=== PATIENT | female | born 1945 | race American Indian/Alaskan Native ===

== ENCOUNTER 2017-01-14 16:08 | Emergency (ER) | payer MEDICARE ==
[2017-01-14 16:20] VITALS: BP 164/111
[2017-01-14 17:05] LABS: Anion Gap 18 mmol/L; Blood Urea Nitrogen 15 mg/dL (7-17); Calcium 9.1 mg/dL (8.4-10.2); Carbon Dioxide 24 mmol/L (22-30); Chloride 101.8 mmol/L (98-107); Glucose 90 mg/dL (65-100); Potassium 3.8 mmol/L (3.6-5.0); Sodium 140 mmol/L (137-145)
[2017-01-14 17:06] LABS: Basophils % (Auto) 0.3 % (0.0-1.8); Eosinophils % (Auto) 4.1 % (0.0-4.3); Hematocrit 37.4 % (30.3-42.9); Hemoglobin 12.3 gm/dl (10.1-14.3); Mean Corpuscular HGB Conc 33 % (30-34); Mean Corpuscular Hemoglobin 28 pg (28-32); Mean Corpuscular Volume 85 fl (79-97); Platelet Count 244 K/mm3 (140-440); Red Blood Count 4.41 M/mm3 (3.65-5.03); Red Cell Distribution Width 14.3 % (13.2-15.2); White Blood Count 9.7 K/mm3 (4.5-11.0)
== END 2017-01-14 18:58 | disposition left against medical advice (07) ==
LOC: ED 16:08
DX: R12 Heartburn (principal); I10 Essential (primary) hypertension; F31.9 Bipolar disorder, unspecified; F17.200 Nicotine dependence, unspecified, uncomplicated; Z53.21 Procedure and treatment not carried out due to patient leaving prior to being seen by health care provider
CPT/HCPCS: 36415; 80048; 84484; 85025; 93005; 93010

== ENCOUNTER 2017-07-10 12:52 | Emergency (ER) | payer MEDICARE ==
[2017-07-10 14:32] LABS: Basophils % (Auto) 0.4 % (0.0-1.8); Eosinophils % (Auto) 3.5 % (0.0-4.3); Hematocrit 34.3 % (30.3-42.9); Hemoglobin 11.4 gm/dl (10.1-14.3); Mean Corpuscular HGB Conc 33 % (30-34); Mean Corpuscular Hemoglobin 28 pg (28-32); Mean Corpuscular Volume 84 fl (79-97); Platelet Count 215 K/mm3 (140-440); Red Blood Count 4.09 M/mm3 (3.65-5.03); Red Cell Distribution Width 13.8 % (13.2-15.2); White Blood Count 8.1 K/mm3 (4.5-11.0)
[2017-07-10 14:42] LABS: Anion Gap 17 mmol/L; BUN/Creatinine Ratio 22; Blood Urea Nitrogen 13 mg/dL (7-17); Calcium 9.1 mg/dL (8.4-10.2); Carbon Dioxide 26 mmol/L (22-30); Chloride 103.1 mmol/L (98-107); Glucose 95 mg/dL (65-100); Potassium 4.1 mmol/L (3.6-5.0); Sodium 142 mmol/L (137-145)
--- NOTE | 2017-07-10 22:43 | Emergency Department Report ---
HPI - General Chief Complaint: Medical Clearance Time Seen by Provider: 07/10/17 21:53 - HPI HPI: This is a 71 year-old female presents to the emergency department with complaint of a few days of lower extremity swelling. Sometimes she feels as if her left leg is cramping. She denies any current shortness of breath, chest pain. She has a past medical history of hypertension and a psychiatric history of bipolar disorder. She is here visiting her daughter and therefore does not have a local primary care physician. No sick contacts at home. She has not taken anything for her symptoms prior to presentation. She denies any rash, skin color change, lesions. ED Past Medical Hx - Past Medical History Hx Hypertension: Yes Hx Psychiatric Treatment: Yes (Bipolar) - Social History Smoking Status: Current Every Day Smoker Substance Use Type: None - Medications Home Medications: Home Medications Medication Instructions Recorded Confirmed Last Taken Type Furosemide [Lasix] 20 mg PO QDAY #5 tablet 07/10/17 Unknown Rx ED Review of Systems ROS: Stated complaint: PEDAL EDEMA Other details as noted in HPI Comment: All other systems reviewed and negative Constitutional: denies: chills, fever Eyes: denies: eye pain, eye discharge, vision change ENT: denies: ear pain, throat pain Respiratory: denies: cough, shortness of breath, wheezing Cardiovascular: edema. denies: chest pain Gastrointestinal: denies: abdominal pain, nausea, diarrhea Genitourinary: denies: urgency, dysuria, discharge Musculoskeletal: denies: back pain, joint swelling, arthralgia Skin: denies: rash, change in color Neurological: denies: headache, weakness Physical Exam - Physical Exam Vital Signs: Vital Signs 07/10/17 13:32 Temperature 98.2 F Pulse Rate 125 H Respiratory 20 Rate Blood Pressure 144/91 O2 Sat by Pulse 99 Oximetry Physical Exam: GENERAL: The patient is well-developed well-nourished. HENT: Normocephalic. Atraumatic. Patient has moist mucous membranes. EYES: Extraocular motions are intact. Pupils equal reactive to light bilaterally. NECK: Supple. Trachea is midline. CHEST/LUNGS: Clear to auscultation. There is no respiratory distress noted. HEART/CARDIOVASCULAR: Regular. There is mild tachycardia. There is no gallop rub or murmur. ABDOMEN: Abdomen is soft, nontender. Patient has normal bowel sounds. There is no abdominal distention. SKIN: There is 1+ pitting edema to bilateral lower extremities. NEURO: The patient is awake, alert, and oriented. The patient is cooperative. The patient has no focal neurologic deficits. The patient has normal speech and gait. MUSCULOSKELETAL: There is no tenderness or deformity. There is no limitation range of motion. There is no evidence of acute injury. ED Course Vital Signs 07/10/17 13:32 Temperature 98.2 F Pulse Rate 125 H Respiratory 20 Rate Blood Pressure 144/91 O2 Sat by Pulse 99 Oximetry ED Medical Decision Making - Lab Data Result diagrams: 07/10/17 14:01 07/10/17 14:01 - Radiology Data Radiology results: image reviewed interpreted by me: Chest x-ray does not show any acute process. There are no pleural effusions, obvious pneumonia and there is no pneumothorax. - Medical Decision Making 71-year-old female presents with complaint of a few days of lower extremity swelling. She does not really have any chest pain or shortness of breath and is low suspicion for CHF but this was confirmed with a BNP of around 50. The rest of her labs have been unremarkable. Chest x-ray did not show any pleural effusions, pneumonia, pneumothorax or any acute process. She was given a dose of Lasix and will go home on a few days of Lasix as well. However since the patient did recently travel here from her home and complains of lower extremity swelling, she has been set up to have a venous Doppler ultrasound done tomorrow. If positive she will be redirected back to the emergency department. If negative, she has been encouraged to follow up with her PCP as she gets home. She will return to the ER with any worsening of her symptoms or any acute distress. Discharge instructions were given while in the emergency department and all questions have been answered. - Differential Diagnosis CHF, venous stasis, DVT Critical Care Time: No Critical care attestation.: If time is entered above; I have spent that time in minutes in the direct care of this critically ill patient, excluding procedure time. ED Disposition Clinical Impression: Swelling of both lower extremities Disposition: DC-01 TO HOME OR SELFCARE Is pt being admited?: No Condition: Stable Instructions: Leg Edema (ED) Additional Instructions: I am getting U set up for a bilateral lower extremity ultrasound to rule out blood clots. They will call you with this appointment. If positive, they will redirect you to the emergency department. If negative, follow up with a primary care physician as soon as you return home. Return to the emergency department with any worsening of your symptoms, any chest pain or shortness of breath, or any acute distress. Prescriptions: Furosemide [Lasix] 20 mg PO QDAY #5 tablet Referrals: PRIMARY CARE, [Primary Care Provider] - [facility] Time of Disposition: 23:59
[2017-07-10] MEDS ORDERED: LASIX PO ONE (23:17)
[2017-07-10 23:35] VITALS: BP 133/77
--- NOTE | 2017-07-11 10:32 | XRay Report ---
ROUTINE CHEST, TWO VIEWS: HISTORY: Shortness of breath. The trachea, heart, mediastinal contour, lung is[place] and bony thorax are unremarkable. IMPRESSION: Unremarkable chest x-ray.
== END 2017-07-11 00:41 | disposition home or self-care (01) ==
LOC: ED 12:52
DX: R60.0 Localized edema (principal); I10 Essential (primary) hypertension; F31.9 Bipolar disorder, unspecified; F17.200 Nicotine dependence, unspecified, uncomplicated
CPT/HCPCS: 36415; 71020; 80048; 83880; 84484; 85025; 93005; 93010

== ENCOUNTER 2017-07-13 06:44 | Emergency (ER) | payer MEDICARE ==
[2017-07-13 08:02] VITALS: BP 120/77
[2017-07-13 08:29] LABS: Hematocrit 33.5 % (30.3-42.9); Hemoglobin 10.7 gm/dl (10.1-14.3); Mean Corpuscular HGB Conc 32 % (30-34); Mean Corpuscular Hemoglobin 27 pg (28-32); Mean Corpuscular Volume 84 fl (79-97); Platelet Count 211 K/mm3 (140-440); Red Blood Count 3.97 M/mm3 (3.65-5.03); Red Cell Distribution Width 13.7 % (13.2-15.2); White Blood Count 7.1 K/mm3 (4.5-11.0)
[2017-07-13 08:43] LABS: Anion Gap 18 mmol/L; BUN/Creatinine Ratio 19; Blood Urea Nitrogen 13 mg/dL (7-17); Calcium 8.7 mg/dL (8.4-10.2); Carbon Dioxide 25 mmol/L (22-30); Chloride 102.2 mmol/L (98-107); Glucose 99 mg/dL (65-100); Sodium 141 mmol/L (137-145)
[2017-07-13 09:51] LABS: Bilirubin,Urine NEG (Negative); Blood,Urine NEG (Negative); Ketones,Urine NEG (Negative); Leukocyte Esterase,Urine TR (Negative); Nitrite,Urine NEG (Negative); Protein,Urine <15 mg/dL mg/dL (Negative); Urobilinogen,Urine < 2.0 mg/dL (<2.0)
== END 2017-07-13 10:19 | disposition left against medical advice (07) ==
LOC: ED 06:44
CPT/HCPCS: 36415; 80048; 81001; 85027; 85379

== ENCOUNTER 2018-09-01 07:57 | Emergency (ER) | payer MEDICARE ==
--- NOTE | 2018-09-01 08:34 | Emergency Department Report ---
ED General Adult HPI - General Chief complaint: Pain General Stated complaint: MUSCLE SPASM Time Seen by Provider: 09/01/18 08:21 Source: patient Mode of arrival: Ambulatory Limitations: No Limitations - History of Present Illness Initial comments: Patient presents to emergency department with the chief complaint muscle spasms 2-3 weeks. Patient states the spasms started after falling a couple weeks ago and at that time she was evaluated in our emergency department. Patient states at that time she was given medications for spasms which relieved her symptoms but she has since run out. Patient is here for refill of those medications. Patient denies chest pain, shortness breath, or abdominal pain. -: Gradual Location: back, lower extremity Radiation: non-radiation Severity scale (0 -10): 2 Quality: other (throbbing) Consistency: constant Improves with: medication Associated Symptoms: denies other symptoms Treatments Prior to Arrival: none - Related Data Previous Rx's Medication Instructions Recorded Last Taken Type Cyclobenzaprine [Flexeril] 10 mg PO QHS PRN #20 tablet 06/16/18 Unknown Rx Furosemide [Lasix] 20 mg PO QDAY #5 tablet 06/16/18 Unknown Rx Naproxen [Naprosyn TAB] 500 mg PO BID #30 tablet 09/01/18 Unknown Rx methOCARBAMOL [Robaxin TAB] 500 mg PO BID #10 tab 09/01/18 Unknown Rx Allergies Allergy/AdvReac Type Severity Reaction Status Date / Time No Known Allergies Allergy Verified 07/13/17 07:07 ED Review of Systems ROS: Stated complaint: MUSCLE SPASM Other details as noted in HPI Comment: All other systems reviewed and negative Constitutional: denies: chills, fever Eyes: denies: eye pain, eye discharge, vision change ENT: denies: ear pain, throat pain Respiratory: denies: cough, shortness of breath, wheezing Cardiovascular: denies: chest pain, palpitations Endocrine: no symptoms reported Gastrointestinal: denies: abdominal pain, nausea, diarrhea Genitourinary: denies: urgency, dysuria, discharge Musculoskeletal: denies: back pain, joint swelling, arthralgia Skin: denies: rash, lesions Neurological: denies: headache, weakness, paresthesias Psychiatric: denies: anxiety, depression Hematological/Lymphatic: denies: easy bleeding, easy bruising ED Past Medical Hx - Past Medical History Previous Medical History?: Yes Hx Hypertension: Yes Hx GERD: Yes Hx Psychiatric Treatment: Yes (Bipolar) - Surgical History Past Surgical History?: No - Social History Smoking Status: Current Every Day Smoker Substance Use Type: None - Medications Home Medications: Home Medications Medication Instructions Recorded Confirmed Last Taken Type Cyclobenzaprine [Flexeril] 10 mg PO QHS PRN #20 tablet 06/16/18 Unknown Rx Furosemide [Lasix] 20 mg PO QDAY #5 tablet 06/16/18 Unknown Rx Naproxen [Naprosyn TAB] 500 mg PO BID #30 tablet 09/01/18 Unknown Rx methOCARBAMOL [Robaxin TAB] 500 mg PO BID #10 tab 09/01/18 Unknown Rx ED Physical Exam - General Limitations: No Limitations General appearance: alert, in no apparent distress - Head Head exam: Present: atraumatic, normocephalic - Eye Eye exam: Present: normal appearance - ENT ENT exam: Present: mucous membranes moist - Neck Neck exam: Present: normal inspection - Respiratory Respiratory exam: Present: normal lung sounds bilaterally. Absent: respiratory distress, wheezes, rales, rhonchi - Cardiovascular Cardiovascular Exam: Present: regular rate, normal rhythm. Absent: systolic murmur, diastolic murmur, rubs, gallop - GI/Abdominal GI/Abdominal exam: Present: soft, normal bowel sounds. Absent: distended, tenderness - Extremities Exam Extremities exam: Present: normal inspection - Back Exam Back exam: Present: normal inspection - Neurological Exam Neurological exam: Present: alert, oriented X3, CN II-XII intact. Absent: motor sensory deficit - Psychiatric Psychiatric exam: Present: normal affect, normal mood - Skin Skin exam: Present: warm, dry, intact, normal color. Absent: rash ED Course Vital Signs 09/01/18 08:04 Temperature 97.6 F Pulse Rate 110 H Respiratory 16 Rate Blood Pressure 134/85 O2 Sat by Pulse 99 Oximetry Critical care attestation.: If time is entered above; I have spent that time in minutes in the direct care of this critically ill patient, excluding procedure time. ED Disposition Clinical Impression: Muscle spasm Disposition: DC-01 TO HOME OR SELFCARE Is pt being admited?: No Does the pt Need Aspirin: No Condition: Stable Instructions: Muscle Spasm (ED) Additional Instructions: return if worse Prescriptions: methOCARBAMOL [Robaxin TAB] 500 mg PO BID #10 tab Naproxen [Naprosyn TAB] 500 mg PO BID #30 tablet Referrals: [facility] [Provider Group] - 3-5 Days [facility] [Provider Group] - 3-5 Days PRIMARY [facility]ARE,MD [Primary Care Provider] - 3-5 Days
== END 2018-09-01 08:44 | disposition home or self-care (01) ==
LOC: ED 07:57
CPT/HCPCS: 99283

== ENCOUNTER 2018-09-20 08:56 | Emergency (ER) | payer MEDICARE ==
[2018-09-20] MEDS ORDERED: PERCOCET 5/325 PO ONE (09:54)
--- NOTE | 2018-09-20 10:21 | Emergency Department Report ---
HPI - General Chief Complaint: Extremity Injury, Lower Time Seen by Provider: 09/20/18 09:35 - HPI HPI: 72-year-old female presents to the emergency department via EMS with complaint of bilateral foot pain with right greater than left. This is been going on for the past 3-4 weeks. The patient says that she usually has some issues with foot and/or lower extremity edema. Sometimes she will also have some discomfort but says that the pain has been increasing progressively. The pain is mostly to the dorsum of the foot. The patient also says that the top of the right foot has started to become darkened and/or discolored. She tried some ibuprofen and Tylenol for her symptoms without any relief. She has a primary care physician but cannot currently remember their name. She has a past medical history of GERD, hypertension, bipolar disorder. No recent travel or sick contacts at home. ED Past Medical Hx - Past Medical History Previous Medical History?: Yes Hx Hypertension: Yes Hx GERD: Yes Hx Psychiatric Treatment: Yes (Bipolar) - Surgical History Past Surgical History?: No - Social History Smoking Status: Current Every Day Smoker Substance Use Type: None - Medications Home Medications: Home Medications Medication Instructions Recorded Confirmed Last Taken Type Cyclobenzaprine [Flexeril] 10 mg PO QHS PRN #20 tablet 06/16/18 Unknown Rx Furosemide [Lasix] 20 mg PO QDAY #5 tablet 06/16/18 Unknown Rx Naproxen [Naprosyn TAB] 500 mg PO BID #30 tablet 09/01/18 Unknown Rx methOCARBAMOL [Robaxin TAB] 500 mg PO BID #10 tab 09/01/18 Unknown Rx HYDROcodone/APAP 5-325 [Stevenson 1 each PO Q6HR PRN #12 tablet 09/20/18 Unknown Rx 5/325] Sulfamethoxazole/Trimethoprim 1 each PO BID #14 tablet 09/20/18 Unknown Rx [Bactrim DS TAB] ED Review of Systems ROS: Stated complaint: RIGHT FOOT PAIN Other details as noted in HPI Comment: All other systems reviewed and negative Constitutional: denies: chills, fever Eyes: denies: eye pain, vision change ENT: denies: ear pain, throat pain Respiratory: denies: cough, shortness of breath Cardiovascular: denies: chest pain, palpitations Gastrointestinal: denies: abdominal pain, vomiting Genitourinary: denies: dysuria, discharge Musculoskeletal: joint swelling, arthralgia. denies: back pain Skin: change in color. denies: pruritus Neurological: denies: headache, weakness, numbness Physical Exam - Physical Exam Vital Signs: Vital Signs 09/20/18 09/20/18 09/20/18 09:06 09:42 09:44 Temperature 98.5 F Pulse Rate 110 H 99 H Respiratory 18 18 17 Rate Blood Pressure 144/82 Blood Pressure 151/90 [Left] O2 Sat by Pulse 99 99 Oximetry 09/20/18 10:15 Temperature Pulse Rate Respiratory 15 Rate Blood Pressure Blood Pressure [Left] O2 Sat by Pulse Oximetry Physical Exam: GENERAL: The patient is well-developed well-nourished. HEENT: Normocephalic. Atraumatic. Patient has moist mucous membranes. EYES: Extraocular motions are intact. NECK: Supple. Trachea is midline. CHEST/LUNGS: Clear to auscultation. There is no respiratory distress noted. HEART/CARDIOVASCULAR: Regular. There is no tachycardia. There is no obvious murmur. ABDOMEN: Abdomen is soft, nontender. Patient has normal bowel sounds. There is no abdominal distention. SKIN: There is some nonpitting swelling of the bilateral lower extremities, including feet, with right greater than left. There is some mild erythema as well as some patchy areas of darkening skin to the dorsum of the right foot. There is some warmth but no fluctuance. No bleeding, weeping or oozing. NEURO: The patient is awake, alert, and oriented. The patient is cooperative. The patient has no focal neurologic deficits. The patient has normal speech. MUSCULOSKELETAL: There is tenderness to palpation to the bilateral dorsal feet. Palpable pedal pulses. There is no evidence of acute injury. ED Course Vital Signs 09/20/18 09/20/18 09/20/18 09:06 09:42 09:44 Temperature 98.5 F Pulse Rate 110 H 99 H Respiratory 18 18 17 Rate Blood Pressure 144/82 Blood Pressure 151/90 [Left] O2 Sat by Pulse 99 99 Oximetry 09/20/18 10:15 Temperature Pulse Rate Respiratory 15 Rate Blood Pressure Blood Pressure [Left] O2 Sat by Pulse Oximetry ED Medical Decision Making - Lab Data Result diagrams: 09/20/18 10:03 09/20/18 10:03 - Radiology Data Radiology results: report reviewed, image reviewed interpreted by me: X-ray of the bilateral feet does not show any fracture, sedation or signs of osteomyelitis. Bilateral venous Doppler lower extremity is negative for DVT. - Medical Decision Making Patient presents with a few weeks of progressive and worsening foot pain, swelling and now some redness and/or skin color change to the right foot. Patient is afebrile and vital signs are stable. X-rays were done of the feet that did not show any signs of osteomyelitis. Labs are unremarkable including CBC, metabolic panel and uric acid level. Patient also was negative for DVT with bilateral lower extremity venous Doppler ultrasounds. For all these reasons the patient appears safe for discharge home at this time. She has been given a referral for podiatry, antibiotics, pain medication and she has been instructed to follow-up with her primary care physician. She will return to the ER with any worsening of her symptoms or any acute distress. - Differential Diagnosis cellulitis, DVT, venous stasis Critical Care Time: No Critical care attestation.: If time is entered above; I have spent that time in minutes in the direct care of this critically ill patient, excluding procedure time. ED Disposition Clinical Impression: Foot pain, bilateral, Cellulitis of right foot Peripheral neuropathy Qualifiers: Peripheral neuropathy type: polyneuropathy, unspecified Qualified Code(s): G62.9 - Polyneuropathy, unspecified Disposition: DC-01 TO HOME OR SELFCARE Is pt being admited?: No Condition: Stable Instructions: Cellulitis (ED), Peripheral Neuropathy (ED) Additional Instructions: Please follow-up with your primary care physician in the next few days. I am also giving you some referrals to local podiatrists. Take the antibiotics as prescribed. Return to the emergency Department with any worsening of your symptoms or any acute distress. You have been prescribed a medication that can be sedating. Therefore, this medication cannot be taken prior to driving, working, being responsible for [facility], and cannot be mixed with alcohol of any quantity. Prescriptions: HYDROcodone/APAP 5-325 [Stevenson 5/325] 1 each PO Q6HR PRN #12 tablet PRN Reason: Pain Sulfamethoxazole/Trimethoprim [Bactrim DS TAB] 1 each PO BID #14 tablet Referrals: YANICK LE MD [Primary Care Provider] - 3-5 Days TYRONE LOWRY DPM [Staff Physician] - 3-5 Days OLIMPIA STEELE MD [Staff Physician] - 3-5 Days Time of Disposition: 13:41
[2018-09-20 10:23] LABS: Basophils % (Auto) 0.4 % (0.0-1.8); Eosinophils # (Auto) 0.2 K/mm3 (0.0-0.4); Eosinophils % (Auto) 3.1 % (0.0-4.3); Hemoglobin 10.8 gm/dl (10.1-14.3); Lymphocytes # (Auto) 1.8 K/mm3 (1.2-5.4); Lymphocytes % (Auto) 31.2 % (13.4-35.0); Mean Corpuscular HGB Conc 33 % (30-34); Mean Corpuscular Volume 90 fl (79-97); Monocytes # (Auto) 0.7 K/mm3 (0.0-0.8); Monocytes % (Auto) 12.2 % (0.0-7.3); Platelet Count 162 K/mm3 (140-440); Red Blood Count 3.65 M/mm3 (3.65-5.03); Red Cell Distribution Width 15.1 % (13.2-15.2)
[2018-09-20 10:46] LABS: BUN/Creatinine Ratio 19; Blood Urea Nitrogen 13 mg/dL (7-17); Calcium 8.5 mg/dL (8.4-10.2); Hemolysis Index 6; Uric Acid 4.9 mg/dL (3.5-7.6)
--- NOTE | 2018-09-20 11:45 | XRay Report ---
BILATERAL FOOT RADIOGRAPHS INDICATION: Foot pain. COMPARISON: None similar. FINDINGS: AP, lateral and oblique views of both feet may suggest mild hallux valgus, right more than left. Grossly intact remainder articulation. No focal suspicious erosions. Demineralized bones with second through fifth metatarsal head periarticular osteopenia may also be noted. Slight plantar calcaneal degenerative spurring, right more than left. Slight dorsal foot soft tissue prominence/fullness overlying the metatarsals not excluded on the left. CONCLUSION: No acute bony abnormality with few degenerative changes noted, as described. Please correlate. Thank you for the opportunity to participate in this patient's care.
--- NOTE | 2018-09-20 13:36 | Vascular Lab Report ---
FINAL REPORT EXAM: VL VENOUS DUPLEX LE BILAT HISTORY: LE swelling and pain COMPARISON: None. TECHNIQUE: Duplex Doppler imaging of the bilateral lower extremities was performed. FINDINGS: The right greater saphenous vein, common femoral vein, superficial femoral vein, popliteal vein, post erior tibial vein, and peroneal vein are patent, compressible, and demonstrate normal waveforms and a ugmentation. The left greater saphenous vein, common femoral vein, superficial femoral vein, popliteal vein, poste rior tibial vein, and peroneal vein are patent, compressible, and demonstrate normal waveforms and au gmentation. IMPRESSION: No evidence of deep venous thrombosis in the bilateral lower extremities.
[2018-09-20 13:58] VITALS: BP 137/86
== END 2018-09-20 13:59 | disposition home or self-care (01) ==
LOC: ED 08:56
DX: M79.671 Pain in right foot (principal); M79.672 Pain in left foot; L03.115 Cellulitis of right lower limb; G62.9 Polyneuropathy, unspecified; I10 Essential (primary) hypertension; E11.9 Type 2 diabetes mellitus without complications; F31.9 Bipolar disorder, unspecified; F17.200 Nicotine dependence, unspecified, uncomplicated
CPT/HCPCS: 36415; 80048; 84550; 85025; 93970

== ENCOUNTER 2019-03-20 17:04 | Emergency (ER) | payer MEDICARE ==
--- NOTE | 2019-03-20 17:18 | Emergency Department Report ---
Blank Doc - Documentation Documentation: This is a 73-year-old female that presents with bilateral arms and shoulder pain with muscle spasms. This initial assessment/diagnostic orders/clinical plan/treatment(s) is/are subject to change based on patient's health status, clinical progression and re- assessment by fellow clinical providers in the ED. Further treatment and workup at subsequent clinical providers discretion. Patient/guardians urged not to elope from the ED as their condition may be serious if not clinically assessed and managed. Initial orders include: 1- Patient sent to [facility] for further evaluation and treatment 2- labs
[2019-03-20 17:45] LABS: Basophils % (Auto) 0.5 % (0.0-1.8); Eosinophils # (Auto) 0.3 K/mm3 (0.0-0.4); Hematocrit 33.8 % (30.3-42.9); Hemoglobin 11.3 gm/dl (10.1-14.3); Lymphocytes # (Auto) 2.8 K/mm3 (1.2-5.4); Lymphocytes % (Auto) 31.4 % (13.4-35.0); Mean Corpuscular HGB Conc 34 % (30-34); Mean Corpuscular Volume 89 fl (79-97); Monocytes # (Auto) 1.2 K/mm3 (0.0-0.8); Monocytes % (Auto) 13.5 % (0.0-7.3); Platelet Count 201 K/mm3 (140-440); Red Blood Count 3.78 M/mm3 (3.65-5.03); Red Cell Distribution Width 13.1 % (13.2-15.2)
[2019-03-20 18:07] LABS: BUN/Creatinine Ratio 18; Blood Urea Nitrogen 16 mg/dL (7-17); Calcium 9.3 mg/dL (8.4-10.2); Hemolysis Index 12
[2019-03-20] MEDS ORDERED: NORCO 10/325 PO ONE (21:01)
[2019-03-20 22:55] VITALS: BP 137/87
== END 2019-03-20 22:55 | disposition home or self-care (01) ==
LOC: ED 17:04
DX: M25.511 Pain in right shoulder (principal); Z53.21 Procedure and treatment not carried out due to patient leaving prior to being seen by health care provider
CPT/HCPCS: 36415; 80048; 85025; 99283